=== PATIENT | female | born 1965 | race Caucasian/White ===

== ENCOUNTER → 2017-02-25 | Outpatient (CLI) | payer OTHER | END | disposition home or self-care (01) | LOC: LABWHC1 17:20 | PROVIDERS: ATTEND Psychiatry & Neurology Psychiatry | DX: F31.9 Bipolar disorder, unspecified (principal) | CPT/HCPCS: 36415; 80164; 84450; 84460 ==

== ENCOUNTER → 2017-06-27 | Outpatient (CLI) | payer OTHER ==
--- NOTE | 2017-06-27 13:17 | BD ---
EXAMINATION TYPE: MG DEXA axial skeleton. DATE OF EXAM: 06/27/2017 COMPARISON: NONE CLINICAL HISTORY: : no Height: 65 Weight: 136 FRAX RISK QUESTIONS: Alcohol (3 or more units per day): no Family History (Parent hip fracture): no Glucocorticoids (More than 3mos): no (Ex: prednisone, prednisolone, methylprednisolone, dexamethasone, and hydrocortisone). History of Fracture in Adulthood: no Secondary Osteoporosis: 1. Type 1 Diabetes: no 2. Hyperthyroidism: no 3. Menopause before 45: n/a 4. Malnutrition: no 5. Chronic liver disease: no Rheumatoid Arthritis: no Current Tobacco Use: no RISK FACTORS HISTORY OF: History of Wrist Fracture: as child, both arms Family History of Osteoporosis: unsure Active: yes Diet low in dairy products/other sources of calcium: at least one serving a day Postmenopausal woman: no If Premenopausal, do you have irregular periods: YES Take estrogen and/or progesterone medications: topical for at least 3 years How long: history of hormonal contraceptives about 10 years, none now Lost more than 2 inches in height since high school: no Frequent falls: no Poor Health: no Hyperparathyroidism: no Adrenal Insufficiency: no MEDICATIONS: Prednisone or other steroids: no Thyroid Medications: no Osteoporosis Medications: no Additional Medications: calcium EXAM MEASUREMENTS: Bone mineral densitometry was performed using the [employer] System. Bone mineral density as measured about the Lumbar spine is: ----- L1-L4(G/cm2): 1.173 T Score Values are as follows: ----- L2: -0.3 ----- L3: 0.2 ----- L4: 0.2 ----- L1-L4: -0.1 Bone mineral density has: Increased 1.1% since study of: 09/02/2013 Bone mineral density about the R hip (g/cm2): 0.733 Bone mineral density about the L hip (g/cm2): 0.867 T Score values are as follows: -----R Neck: -2.2 -----L Neck: -1.2 -----R Total: -1.2 -----L Total: -0.7 Bone mineral density has: Increased 0.7% since study of: 09/02/2013 IMPRESSION: Osteopenia (T Score between -2.5 and -1 as noted by T score values There is slightly increased risk of fracture and the patient may be considered for treatment. Re-Screen 2-5 years. NOTE: T-SCORE=SD OF THE YOUNG ADULT MEAN.
--- NOTE | 2017-06-28 11:52 | MM ---
Reason for exam: screening (asymptomatic). Last mammogram was performed 1 year ago. History: Family history of premenopausal breast cancer in aunt at age 45. Took hormonal contraceptives for 10 years. Physical Findings: A clinical breast exam by your physician is recommended on an annual basis and results should be correlated with mammographic findings. MG Screening Mammo w CAD Bilateral CC and MLO view(s) were taken. Prior study comparison: June 13, 2016, bilateral MG screening mammo w CAD. July 23, 2015, mammogram, performed at [facility]. The breast tissue is heterogeneously dense. This may lower the sensitivity of mammography. There are typically benign round calcifications in the right breast. There is no discrete abnormality. ASSESSMENT: Benign, BI-RAD 2 RECOMMENDATION: Routine screening mammogram of both breasts in 1 year.
== END | disposition home or self-care (01) ==
LOC: RADBDWWP 07:11
PROVIDERS: ATTEND Obstetrics & Gynecology
DX: Z12.31 Encounter for screening mammogram for malignant neoplasm of breast (principal); M85.88 Other specified disorders of bone density and structure, other site
CPT/HCPCS: 77080; G0202

== ENCOUNTER → 2017-09-18 | Outpatient (CLI) | payer OTHER ==
[2017-09-18 08:54] LABS: Basophils # (A) 0.1 k/uL (0-0.2); Basophils % (A) 1 %; Eosinophils # (A) 0.2 k/uL (0-0.7); Eosinophils % (A) 3 %; HGB 13.7 gm/dL (11.4-16.0); Lymphocytes # (A) 1.8 k/uL (1.0-4.8); Lymphocytes % (A) 27 %; MCH 30.6 pg (25.0-35.0); MCHC 32.6 g/dL (31.0-37.0); MCV 93.8 fL (80.0-100.0); Mean Platelet Volume 7.6; Monocytes # (A) 0.5 k/uL (0-1.0); Monocytes % (A) 8 %; Neutrophils % (A) 60 %; Platelet Count 278 k/uL (150-450); RBC 4.48 m/uL (3.80-5.40); RDW 12.1 % (11.5-15.5); WBC 6.7 k/uL (3.8-10.6)
[2017-09-18 11:23] LABS: ALT 17 U/L (9-52); AST 18 U/L (14-36); Albumin 4.6 g/dL (3.5-5.0); Alkaline Phosphatase 64 U/L (38-126); Anion Gap 12 mmol/L; Blood Urea Nitrogen 17 mg/dL (7-17); Calcium 9.9 mg/dL (8.4-10.2); Carbon Dioxide 29 mmol/L (22-30); Chloride 101 mmol/L (98-107); Cholesterol 205 mg/dL (<200); Glucose 94 mg/dL (74-99); HDL Cholesterol 78 mg/dL (40-60); LDL Cholesterol,Calculated 105 mg/dL (0-99); Potassium 4.9 mmol/L (3.5-5.1); Sodium 142 mmol/L (137-145); Total Bilirubin 0.3 mg/dL (0.2-1.3); Total Protein 7.7 g/dL (6.3-8.2); Triglycerides 111 mg/dL (<150)
[2017-09-18 11:29] LABS: Valproic Acid (Depakene) 81.7 ug/mL
== END | disposition home or self-care (01) ==
LOC: LABWHC1 08:23
PROVIDERS: ATTEND Psychiatry & Neurology Psychiatry
DX: Z00.00 Encounter for general adult medical examination without abnormal findings (principal); F31.9 Bipolar disorder, unspecified; E55.9 Vitamin D deficiency, unspecified
CPT/HCPCS: 36415; 80053; 80061; 80164; 82306; 85025

== ENCOUNTER → 2018-06-19 | Outpatient (CLI) | payer OTHER ==
--- NOTE | 2018-06-19 08:50 | CT ---
EXAMINATION TYPE: CT sinus wo con DATE OF EXAM: 06/19/2018 COMPARISON: CT facial bones August 06, 2012 HISTORY: atypical facial pain per order, headache with pressure into forehead and abnormal drainage f or [address] DLP: 673.7 mGycm. Automated Exposure Control for Dose Reduction was Utilized. TECHNIQUE: CT scan of the sinuses is performed without contrast, axial images are obtained, coronal r eformatted images are also reviewed. FINDINGS: The paranasal sinuses including the frontal, ethmoid, sphenoid, and maxillary sinuses bila terally are well-aerated without abnormal opacification. Some linear bony protrusion or trabeculatio n anteriorly in both maxillary sinuses remains present. The ostiomeatal complex is patent bilaterally on the coronal images. Nasal septum remains deviated to left of midline. Visualized portion of mastoid air cells show no abnormal opacification. The globes are intact bilate rally. Visualized portion of brain parenchyma shows no significant abnormality. IMPRESSION: The sinuses remain clear and the ostiomeatal complex remains patent bilaterally.
== END | disposition home or self-care (01) ==
LOC: RADCTMAIN 07:36
PROVIDERS: ATTEND Otolaryngology Sleep Medicine
DX: G50.1 Atypical facial pain (principal)
CPT/HCPCS: 70486

== ENCOUNTER → 2018-11-05 | Outpatient (CLI) | payer SELFPAY ==
--- NOTE | 2018-11-05 11:33 | US ---
EXAMINATION TYPE: US pelvis complete transvag DATE OF EXAM: 11/05/2018 COMPARISON: NONE CLINICAL HISTORY: 53-year-old female Z51.81 Encounter for therapeutic drug level. Hx of prior ablatio n. Patient states was on HRT x 8-10 months TECHNIQUE: Transabdominal sonographic images of the pelvis were acquired. Transvaginal sonographic images were medically necessary to better assess the following anatomy: Endometrium Date of LMP: unknown, FINDINGS: EXAM MEASUREMENTS: Uterus: 8.8 x 5.0 x 4.5 cm Right Ovary: 2.9 x 1.5 x 0.8 cm Left Ovary: 2.2 x 1.3 x 0.9 cm 1. Uterus: Anteverted. Heterogeneous, no dominant masses or lesions visualized 2. Endometrium: limited visualization due to hx of ablation 3. Right Ovary: cystic appearing lesion = 1.5 x 1.4 cm 4. Left Ovary: appears small in size 5. Bilateral Adnexa: wnl 6. Posterior cul-de-sac: no free fluid Cervix- nabothian cysts. Echogenic area seen = 0.7 x 0.7 x 0.5 cm IMPRESSION: 1. Endometrial stripe difficult to delineate secondary to prior ablation. 2. Heterogeneous myometrium could represent diffuse small fibroid change or adenomyosis. 3. A 1.5 cm cyst, possible dominant follicle in the right ovary. Follow-up in 6-8 weeks to reassess. 4. Cervical nabothian cysts along with a 7 mm echogenic lesion in the cervix. This could represent a nabothian cyst with accumulated hemorrhage/debris or a nonspecific focus of calcification related to prior infection or instrumentation.
== END | disposition home or self-care (01) ==
LOC: RADUSWWP 09:36
PROVIDERS: ATTEND Obstetrics & Gynecology
DX: N83.201 Unspecified ovarian cyst, right side (principal); N88.8 Other specified noninflammatory disorders of cervix uteri; Z98.890 Other specified postprocedural states
CPT/HCPCS: 76830; 76856

== ENCOUNTER → 2018-12-01 | Outpatient (CLI) | payer OTHER ==
--- NOTE | 2018-12-02 13:44 | MM ---
Reason for exam: screening (asymptomatic). Last mammogram was performed 1 year and 5 months ago. History: Family history of premenopausal breast cancer in aunt at age 45. Took hormonal contraceptives for 10 years. Took estrogen for 1 year. Took progesterone for 3 months. Physical Findings: A clinical breast exam by your physician is recommended on an annual basis and results should be correlated with mammographic findings. MG Screening Mammo w CAD Bilateral CC and MLO view(s) were taken. Prior study comparison: June 27, 2017, bilateral MG screening mammo w CAD. June 13, 2016, bilateral MG screening mammo w CAD. The breast tissue is heterogeneously dense. This may lower the sensitivity of mammography. No suspicious abnormality on the right. Left central distortion 2-3cm from nipple. ASSESSMENT: Incomplete: need additional imaging evaluation, BI-RAD 0 RECOMMENDATION: Special view mammogram of the left breast. If lesion persists on supplemental views, image directed ultrasound is recommended. [facility] will attempt to contact patient to return for supplemental views and ultrasound if indicated.
== END | disposition home or self-care (01) ==
LOC: RADMAMWWP 07:37
PROVIDERS: ATTEND Obstetrics & Gynecology
DX: Z12.31 Encounter for screening mammogram for malignant neoplasm of breast (principal); Z80.3 Family history of malignant neoplasm of breast
CPT/HCPCS: 77067

== ENCOUNTER → 2018-12-10 | Outpatient (CLI) | payer OTHER ==
--- NOTE | 2018-12-10 11:43 | MM ---
Reason for exam: additional evaluation requested from abnormal screening. Last mammogram was performed less than 1 month ago. History: Family history of premenopausal breast cancer in aunt at age 45 and breast cancer in cousin. Took hormonal contraceptives for 10 years. Taking estrogen for 1 year. Taking progesterone for 3 months. Physical Findings: Nurse did not find any significant physical abnormalities on exam. MG Work Up Mamm w CAD LT Spot compression CC, spot compression MLO, and LM view(s) were taken of the left breast. Prior study comparison: December 01, 2018, bilateral MG screening mammo w CAD. June 27, 2017, bilateral MG screening mammo w CAD. The breast tissue is heterogeneously dense. This may lower the sensitivity of mammography. The previously seen abnormality resolves on additional views and appears as fibroglandular tissue compatible with summation. These results were verbally communicated with the patient and result sheet given to the patient on 12/10/18. ASSESSMENT: Negative, BI-RAD 1 RECOMMENDATION: Return to routine screening mammogram schedule for both breasts.
== END ==
LOC: RADMAMWWP 10:16
PROVIDERS: ATTEND Obstetrics & Gynecology
DX: R92.8 Other abnormal and inconclusive findings on diagnostic imaging of breast (principal)
CPT/HCPCS: 77065

== ENCOUNTER → 2020-01-15 | Outpatient (CLI) | payer OTHER ==
[2020-01-15 21:43] LABS: Valproic Acid (Depakene) 57.7 ug/mL (50.0-100.0)
== END | disposition home or self-care (01) ==
LOC: LABWHC1 10:43
PROVIDERS: ATTEND Psychiatry & Neurology Psychiatry
DX: F31.9 Bipolar disorder, unspecified (principal)
CPT/HCPCS: 36415; 80164; 84450; 84460

== ENCOUNTER → 2020-02-15 | Outpatient (CLI) | payer OTHER ==
--- NOTE | 2020-02-16 09:55 | MM ---
Reason for exam: screening (asymptomatic). Last mammogram was performed 1 year and 2 months ago. History: Family history of premenopausal breast cancer in aunt at age 45 and breast cancer in cousin. Took hormonal contraceptives for 10 years. Taking estrogen for 1 year. Taking progesterone for 3 months. Physical Findings: A clinical breast exam by your physician is recommended on an annual basis and results should be correlated with mammographic findings. MG 3D Screening Mammo W/Cad Bilateral CC and MLO view(s) were taken. Prior study comparison: December 10, 2018, left breast MG work up mamm w CAD LT. December 01, 2018, bilateral MG screening mammo w CAD. The breast tissue is heterogeneously dense. This may lower the sensitivity of mammography. Finding: There are typically benign round calcifications in the right breast. There is no discrete abnormality. ASSESSMENT: Benign, BI-RAD 2 RECOMMENDATION: Routine screening mammogram of both breasts in 1 year.
== END | disposition home or self-care (01) ==
LOC: RADMAMWWP 07:11
PROVIDERS: ATTEND Obstetrics & Gynecology
DX: Z12.31 Encounter for screening mammogram for malignant neoplasm of breast (principal)
CPT/HCPCS: 77063; 77067

== ENCOUNTER → 2020-02-19 | Outpatient (CLI) | payer OTHER ==
--- NOTE | 2020-02-19 09:21 | BD ---
EXAMINATION TYPE: Axial Bone Density DATE OF EXAM: 02/19/2020 COMPARISON: NONE CLINICAL HISTORY: Osteopenia Height: 65 Weight: 146.9 FRAX RISK QUESTIONS: Alcohol (3 or more units per day): no Family History (Parent hip fracture): no Glucocorticoids (More than 3mos): no (Ex: prednisone, prednisolone, methylprednisolone, dexamethasone, and hydrocortisone). History of Fracture in Adulthood: no Secondary Osteoporosis: 1. Type 1 Diabetes: no 2. Hyperthyroidism: no 3. Menopause before 45: no 4. Malnutrition: no 5. Chronic liver disease: no Rheumatoid Arthritis: no Current Tobacco Use: no RISK FACTORS HISTORY OF: History of Wrist Fracture: bilateral wrist When: age 8 and age 9 Family History of Osteoporosis: no Active: yes Diet low in dairy products/other sources of calcium: no Postmenopausal woman: no If Premenopausal, do you have irregular periods: yes Take estrogen and/or progesterone medications: yes How lon years Lost more than 2 inches in height since high school: no MEDICATIONS: bi-polar meds, muscle relaxer, nasal spray x2, progesterone, estradiol, , estrogen cream Additional History: EXAM MEASUREMENTS: Bone mineral densitometry was performed using the [employer] System. Bone mineral density as measured about the Lumbar spine is: ----- L1-L4(G/cm2): 1.157 T Score Values are as follows: ----- L2: -0.6 ----- L3: 0.0 ----- L4: 0.3 ----- L1-L4: -0.2 Bone mineral density has: decreased -1.3 % since study of: 06.27.2017 Bone mineral density about the R hip (g/cm2): 0.775 Bone mineral density about the L hip (g/cm2): 0.922 T Score values are as follows: -----R Neck: -1.9 -----L Neck: -0.8 -----R Total: -1.0 -----L Total: -0.3 Bone mineral density has: increased 4.4 % since study of: 06.27.2017 IMPRESSION: Osteopenia (T Score between -2.5 and -1). There is slightly increased risk of fracture and the patient may be considered for treatment. Re-Screen 2-5 years. NOTE: T-SCORE=SD OF THE YOUNG ADULT MEAN.
== END | disposition home or self-care (01) ==
LOC: RADBDWWP 07:23
PROVIDERS: ATTEND Obstetrics & Gynecology
DX: M85.80 Other specified disorders of bone density and structure, unspecified site (principal)
CPT/HCPCS: 77080

== ENCOUNTER → 2021-08-17 | Outpatient (CLI) | payer OTHER ==
--- NOTE | 2021-08-18 11:43 | MM ---
Reason for exam: screening (asymptomatic). Last mammogram was performed 1 year and 6 months ago. History: Patient is postmenopausal. Family history of premenopausal breast cancer in aunt at age 45 and breast cancer in cousin. Took hormonal contraceptives for 10 years. Taking estrogen for 2 years. Took progesterone for 2 years 3 months. Physical Findings: A clinical breast exam by your physician is recommended on an annual basis and results should be correlated with mammographic findings. MG 3D Screening Mammo W/Cad Bilateral CC and MLO view(s) were taken. Prior study comparison: February 15, 2020, bilateral MG 3d screening mammo w/cad. December 10, 2018, left breast MG work up mamm w CAD LT. The breast tissue is heterogeneously dense. This may lower the sensitivity of mammography. No significant changes when compared with prior studies. ASSESSMENT: Negative, BI-RAD 1 RECOMMENDATION: Routine screening mammogram of both breasts in 1 year.
== END | disposition home or self-care (01) ==
LOC: RADMAMWWP 07:05
PROVIDERS: ATTEND Obstetrics & Gynecology
DX: Z12.31 Encounter for screening mammogram for malignant neoplasm of breast (principal); Z78.0 Asymptomatic menopausal state; Z80.3 Family history of malignant neoplasm of breast
CPT/HCPCS: 77063; 77067

== ENCOUNTER 2022-05-17 17:22 | Emergency (ER) | payer OTHER ==
[2022-05-17 17:59] VITALS: TEMP 98
[2022-05-17] MEDS ORDERED: SODIUM CHLORIDE 0.9% 1,000 ML IV STA (18:37)
--- NOTE | 2022-05-17 18:50 | ED ---
Chest Pain HPI - General Chief Complaint: Chest Pain Stated Complaint: Chest Pain, Sent by PCP Time Seen by Provider: 05/17/22 18:27 Source: patient Mode of arrival: ambulatory - History of Present Illness Initial Comments: Patient is a female presenting with chief complaint of chest pain. Patient states the pain is been ongoing for the last 2 weeks, she states that last week she had 3 episodes of waking up with some centralized chest discomfort. She states that this week she started noticing this discomfort during the daytime. There are no aggravating or alleviating factors. She also admits to some nausea and indigestion. Her maternal grandfather had heart attack in his 50s, no other family history. No shortness of breath, palpitations, weakness, fever, chills, cough, abdominal pain, diarrhea, hemoptysis, hematochezia, melena. - Related Data Allergies Allergy/AdvReac Type Severity Reaction Status Date / Time No Known Allergies Allergy Verified 05/17/22 18:00 Review of Systems ROS Statement: Those systems with pertinent positive or pertinent negative responses have been documented in the HPI. ROS Other: All systems not noted in ROS Statement are negative. Past Medical History Past Medical History: No Reported History History of Any Multi-Drug Resistant Organisms: None Reported Past Surgical History: Section Past Psychological History: No Psychological Hx Reported, Bipolar Smoking Status: Never smoker Past Alcohol Use History: None Reported Past Drug Use History: None Reported General Exam Limitations: no limitations General appearance: alert, in no apparent distress Head exam: Present: atraumatic, normocephalic, normal inspection Eye exam: Present: normal appearance Neck exam: Present: normal inspection Respiratory exam: Present: normal lung sounds bilaterally. Absent: respiratory distress, wheezes, rales, rhonchi, stridor Cardiovascular Exam: Present: regular rate, normal rhythm, normal heart sounds. Absent: systolic murmur, diastolic murmur, rubs, gallop, clicks Neurological exam: Present: alert, oriented X3, CN II-XII intact Psychiatric exam: Present: normal affect, normal mood Skin exam: Present: warm, dry, intact, normal color. Absent: rash Course Vital Signs 05/17/22 05/17/22 17:56 20:22 Temperature 98 F Pulse Rate 71 81 Respiratory 18 15 Rate Blood Pressure 158/105 144/68 O2 Sat by Pulse 98 100 Oximetry Chest Pain [facility] Patient is a 56-year-old female presenting with chief complaint of chest pain for the last 2 weeks. On physical examination heart and lungs are clear to auscultation. Vital signs are stable. CBC and coags are unremarkable. CMP shows calcium 10.3, remainder findings are negative. Troponin is less than 0.012. Urine shows no sign of infectious process or bleeding. EKG showed no ischemic changes. Chest x-ray showed no acute process. Patient has atypical chest pain with heart score of 1. She appears stable for discharge with outpatient follow-up at this time. Follow-up with PCP. Report back to ER with any new or worsening symptoms. Discussed return parameters and answered all questions. Patient conveyed verbal understanding and agreed to the plan. I discussed this case in detail with my attending Dr. Ricks Disposition Clinical Impression: Atypical chest pain Disposition: HOME SELF-CARE Condition: Good Instructions (If sedation given, give patient instructions): Chest Pain (ED) Additional Instructions: Follow-up with PCP. Report back to ER with any new or worsening symptoms. Is patient prescribed a controlled substance at d/c from ED?: No Referrals: Oz Bush MD [Primary Care Provider] - 1-2 days Time of Disposition: 20:16
[2022-05-17 18:54] LABS: Basophils # (A) 0.1 k/uL (0-0.2); Basophils % (A) 1 %; Eosinophils # (A) 0.1 k/uL (0-0.7); Eosinophils % (A) 2 %; HCT 40.7 % (34.0-46.0); HGB 14.1 gm/dL (11.4-16.0); Lymphocytes % (A) 35 %; MCHC 34.5 g/dL (31.0-37.0); MCV 92.6 fL (80.0-100.0); Mean Platelet Volume 8.1; Monocytes # (A) 0.4 k/uL (0-1.0); Monocytes % (A) 6 %; Neutrophils # (A) 3.1 k/uL (1.3-7.7); Neutrophils % (A) 54 %; Platelet Count 284 k/uL (150-450); RBC 4.39 m/uL (3.80-5.40); RDW 11.5 % (11.5-15.5); WBC 5.7 k/uL (3.8-10.6)
[2022-05-17 19:01] LABS: Creatine Kinase 49 U/L (30-135)
[2022-05-17 19:03] LABS: ALT 17 U/L (4-34); AST 22 U/L (14-36); African American GFR (CKD) >90 (>60 ml/min/1.73 sqM); Alkaline Phosphatase 66 U/L (38-126); Anion Gap 9 mmol/L; Blood Urea Nitrogen 12 mg/dL (7-17); Calcium 10.3 mg/dL (8.4-10.2); Carbon Dioxide 30 mmol/L (22-30); Chloride 98 mmol/L (98-107); Glucose 90 mg/dL (74-99); Magnesium 1.7 mg/dL (1.6-2.3); Non-African American GFR(CKD) >90 (>60 ml/min/1.73 sqM); Potassium 4.3 mmol/L (3.5-5.1); Sodium 137 mmol/L (137-145); Total Bilirubin 0.5 mg/dL (0.2-1.3); Total Protein 7.8 g/dL (6.3-8.2)
[2022-05-17 19:05] LABS: INR 0.9 (<1.2); Partial Thromboplastin Time 28.7 sec (22.0-30.0); Prothrombin Time 10.2 sec (9.0-12.0)
[2022-05-17 19:14] LABS: Creatine Kinase MB 0.5 ng/mL (0.0-2.4); Troponin I <0.012 ng/mL (0.000-0.034)
--- NOTE | 2022-05-17 19:23 | XR ---
EXAMINATION TYPE: XR chest 2V DATE OF EXAM: 05/17/2022 COMPARISON: NONE HISTORY: Chest pain. TECHNIQUE: Frontal and lateral views of the chest are obtained. FINDINGS: Overlying EKG leads. There is no focal air space opacity, pleural effusion, or pneumothorax seen. The cardiac silhouette size is within normal limits. The osseous structures are intact. IMPRESSION: No acute process.
[2022-05-17 19:36] LABS: Appearance,Urine Clear (Clear); Bilirubin,Urine Negative (Negative); Blood,Urine Negative (Negative); Color,Urine Colorless; Glucose,Urine (UA) Negative (Negative); Ketones,Urine Negative (Negative); Leukocyte Esterase,Urine Negative (Negative); Nitrite,Urine Negative (Negative); Protein,Urine Negative (Negative); Specific Gravity,Urine 1.004 (1.001-1.035); Urobilinogen,Urine <2.0 mg/dL (<2.0)
[2022-05-17 20:22] VITALS: BP 144/68; PULSE 81; RESP 15
== END 2022-05-17 20:23 | disposition home or self-care (01) ==
LOC: EC 17:22
DX: R07.89 Other chest pain (principal)
CPT/HCPCS: 36415; 71046; 80053; 81003; 82150; 82550; 82553; 83690; 83735; 84484; 85025; 85610; 85730; 93005; 99285

== ENCOUNTER → 2022-07-27 | Outpatient (CLI) | payer OTHER ==
--- NOTE | 2022-07-27 10:26 | CA ---
Stress Echo Report Jacklyn Villagomez Age: 56 Gender: F : 1965 Exam Date: 07/27/2022 09:12 Exam Location: [place] [facility] Ht (in): 65 Wt (lb): 152 Ordering Physician: Oz Bush MD Referring Physician: RONIT, Molder Wax Ball: SHELLY Technologist Procedure CPT: Indication: R07.89 chest pain ICD-9 Codes: Rhythm: Patient History: Cardiac Medications: Medications in past 24 hours: Contrast: Stress Results Protocol: Bebo Total dose(mL): Exercise Duration (min:sec): [address] Depression (mm): Angina Score: Judd Score: METS: 7.1 Resting HR: 92 Resting BP: 131 / 76 Peak HR: 168 Peak BP: 210 / 122 Max Predicted HR: 162 104 % Max Predicted HR Target HR: 138 Double Product: 26286 Stress Summary: BP Response: Reason for Termination: MAX EXERTION/TARGET HR Cardiac Symptoms: NO SYMPTOMS ECG Analysis Resting ECG: Normal sinus rhythm with occasional PVCs Stress ECG: Patient exercised on Bebo protocol for 6 minutes achieving 7 mets 85% of predicted maximal heart rate without chest pain at peak exercise there was [address] segment depression noted in inferolateral leads Arrhythmia: Echo Analysis Resting Echo: Normal left ventricular size wall motion systolic function Peak Echo Analysis: Technically suboptimal study no proper atypical 2 chamber views With that limitation I did not see any exercise induced wall motion abnormalities MEASUREMENTS (Male/Female) Normal Values CONCLUSIONS Average exercise tolerance Abnormal stress test by EKG criteria No evidence of exercise induced wall motion abnormalities with suboptimal echo views Consider further evaluation if clinically indicated Dr. Sal Umanzor MD (Electronically Signed) Final Date: 27 July 2022 10:25
== END | disposition home or self-care (01) ==
LOC: RADNMMAIN 08:57
PROVIDERS: ATTEND Internal Medicine
DX: R94.31 Abnormal electrocardiogram [ECG] [EKG] (principal); R07.89 Other chest pain
CPT/HCPCS: 93351

== ENCOUNTER → 2022-10-04 | Outpatient (CLI) | payer OTHER ==
[2022-10-05 03:45] LABS: Valproic Acid (Depakene) 37.8 ug/mL (50.0-100.0)
[2022-10-05 03:50] LABS: % Iron Saturation 25.81 (12.00-45.00); ALT 16 U/L (8-44); AST 19 U/L (13-35); African American GFR (CKD) 83.2 (60.0-200.0); Albumin 4.6 g/dL (3.8-4.9); Albumin/Globulin Ratio 1.69 (1.60-3.17); Alkaline Phosphatase 64 U/L (41-126); BUN/Creat Ratio 18.05 Ratio (12.00-20.00); Blood Urea Nitrogen 15.9 mg/dL (9.0-27.0); Calcium 9.7 mg/dL (8.7-10.3); Carbon Dioxide 28.3 mmol/L (20.0-27.5); Chloride 99 mmol/L (96-109); Globulin 2.7 g/dL (1.6-3.3); Glucose 71 mg/dL (70-110); Iron 103 ug/dL (50-170); Magnesium 2.1 mg/dL (1.5-2.4); Non-African American GFR(CKD) 71.8 (60.0-200.0); Potassium 4.2 mmol/L (3.5-5.5); Sodium 141 mmol/L (135-145); Total Bilirubin <0.15 mg/dL (0.30-1.20); Total Iron Binding Capacity 399 ug/dL (228-460); Total Protein 7.2 g/dL (6.2-8.2)
[2022-10-05 03:51] LABS: HCT 42.4 % (37.2-46.3); HGB 13.7 g/dL (12.0-15.0); MCH 30.9 pg (27.0-32.0); MCHC 32.3 g/dL (32.0-37.0); MCV 95.5 fL (80.0-97.0); Mean Platelet Volume 9.9 fL (9.5-12.2); NRBC Per 100 WBC 0 /100 WBCS (0.0-0.0); Platelet Count 277 X 10*3/uL (140-440); RBC 4.44 X 10*6/uL (4.10-5.20); RDW 12.2 % (11.5-14.5); WBC 5.04 X 10*3/uL (4.50-10.00)
[2022-10-05 05:17] LABS: Basophils # (A) 0.05 X 10*3/uL (0.00-0.10); Eosinophils # (A) 0.09 X 10*3/uL (0.04-0.35); Eosinophils % (A) 1.8 %; Immature Grans, Automated 0.2 %; Lymphocytes # (A) 2.11 X 10*3/uL (0.90-5.00); Lymphocytes % (A) 41.9 %; Monocytes # (A) 0.45 X 10*3/uL (0.20-1.00); Monocytes % (A) 8.9 %; Neutrophils # (A) 2.33 X 10*3/uL (1.80-7.70); Neutrophils % (A) 46.2 %; RBC Morphology NORMAL
== END | disposition home or self-care (01) ==
LOC: LABWHC1 15:01
PROVIDERS: ATTEND Internal Medicine
DX: Z20.822 Contact with and (suspected) exposure to COVID-19 (principal); M85.80 Other specified disorders of bone density and structure, unspecified site; G43.909 Migraine, unspecified, not intractable, without status migrainosus; F31.78 Bipolar disorder, in full remission, most recent episode mixed; R40.0 Somnolence
CPT/HCPCS: 80164; 86665; 80053; 84443; 82533; 82607; 82728; 82746; 83540; 83550; 83735; 85025; 82306; 86645; 86038; 36415; U0003; 86039

== ENCOUNTER → 2022-11-13 | Outpatient (CLI) | payer OTHER ==
--- NOTE | 2022-11-13 14:56 | P.SLEEP ---
History of Present Illness H&P Date: 11/13/22 This is a 57-year-old female patient, referred to me for sleep apnea evaluation. The patient is a long sleeper. She spends many hours in bed and she sleeps more than 8 hours of sleep and despite that she feels non-refreshed. Typically she goes to bed at around 11 PM and she wakes up 7 AM in the morning. On weekends she stays between 11 PM and no dynamic state. Her noticed excessive snoring and the patient wakes up groggy and not refreshed. She is known to have bipolar disorder and she was originally diagnosed and hospitalized back in 2003 and currently she is on mood stabilizer and her condition is well controlled. No depression. No significant anxiety. She has history of mi graines. She denies waking up choking or gasping for air. She has occasional to grinding of the teeth. No sleepwalking. No sleep talking. No nocturnal heartburn or chest pain. [place] any naps during the day. No sleep paralysis. No hallucinations. No cataplexy. She has gained around 10 pounds in body weight over the past one year. Nevertheless, overall, she is not obese. She tries not to nap and she may take a nap sometimes between 3 and 5 PM. Review of Systems Constitutional: Reports daytime sleepiness, Reports fatigue Eyes: denies as per HPI, denies blurred vision, denies bulging eye, denies decreased vision, denies diplopia, denies discharge, denies dry eye, denies irritation, denies itching, denies pain, denies photophobia, denies loss of peripheral vision, denies loss of vision, denies tunnel vision/blind spots Ears: deny: decreased hearing, ear discharge, earache, tinnitus Ears, nose, mouth and throat: Reports as per HPI Breasts: absent: as per HPI, change in shape, gynecomastia, masses, nipple discharge, pain, skin changes, swelling Cardiovascular: Reports as per HPI Respiratory: Reports snoring Gastrointestinal: Reports as per HPI Genitourinary: Reports as per HPI Menstruation: Reports as per HPI Musculoskeletal: Reports as per HPI Integumentary: Reports as per HPI Neurological: Reports as per HPI Psychiatric: Reports as per HPI Endocrine: Reports as per HPI Past Medical History Past Medical History: GERD/Reflux, Hyperlipidemia, Hypertension, Osteoarthritis (OA) Additional Past Medical History / Comment(s): headaches/migraines, bipolar disorder, ALLERGIC rhinitis, osteopenia, hot flashes, carpal tunnel disease History of Any Multi-Drug Resistant Organisms: None Reported Past Surgical History: Section, Heart Catheterization, Uterine Ablation Additional Past Surgical History / Comment(s): C/S x2 Past Anesthesia/Blood Transfusion Reactions: No Reported Reaction Smoking Status: Former smoker Medications and Allergies Home Medications Medication Instructions Recorded Confirmed Type Amitriptyline HCl [Elavil] 10 mg PO HS 08/07/22 08/09/22 History Aspirin 81 mg PO DAILY 08/07/22 08/09/22 History Atorvastatin [Lipitor] 20 mg PO HS 08/07/22 08/09/22 History Divalproex [Depakote] 500 mg PO HS 08/07/22 08/09/22 History Fluticasone Nasal [place] [Flonase 2 spray EA NOSTRIL DAILY 08/07/22 08/09/22 History Nasal [place]] Levocetirizine Dihydrochloride 5 mg PO DAILY 08/07/22 08/09/22 History [Xyzal] Metoprolol Tartrate [Lopressor] 25 mg PO BID 08/07/22 08/09/22 History Spironolactone [Aldactone] 12.5 mg PO DAILY #90 tablet 08/09/22 Rx Allergies Allergy/AdvReac Type Severity Reaction Status Date / Time adhesive tape AdvReac skin Verified 08/09/22 09:01 redness Physical Exam BP is 115/79, pulse is 70, respirations 12, temperature is 97.3 and weight is 161 pounds [place] score is at 3 the side of the neck is 15 inches in a body mass index is 26.1 and oxygen saturation 95% on room air oxygen. The patient appeared well nourished and normally developed. Vital signs as documented. Head exam is unremarkable. No scleral icterus or corneal arcus noted. Neck is without jugular venous distension, thyromegaly, or carotid bruits. Carotid upstrokes are brisk bilaterally. Lungs are clear to auscultation and percussion. Cardiac exam reveals the PMI to be normally sized and situated. Rhythm is regular. First and second heart sounds normal. No murmurs, rubs or gallops. Abdominal exam reveals normal bowel sounds, no masses, no organomegaly and no aortic enlargement. Extremities are nonedematous and both femoral and pedal pulses are normal. Examination of the skin revealed no evidence of signifi cant rashes, suspicious appearing nevi or other concerning lesions.Neurologically, the patient is awake and alert and the patient does not have any focal neurological deficit. Cranial nerves are essentially intact. Assessment and Plan Plan: Chronic fatigue and limited hypersomnia with an [place] score of 3. The patient remains groggy and sleepy and fatigued despite sleeping in excess of 8 hours. She has some limited snoring. There is no classical manifestations of obstructive sleep apnea based on her reported history. Migraine disorder. Bipolar disorder Osteopenia ALLERGIC rhinitis Carpal tunnel disease Postmenopausal symptoms and the patient has had flashes maintained on amitriptyline Plan Proceed with screening polysomnogram. If the polysomnography is negative or does not explain her chronic daytime sleepiness and fatigue, we'll proceed with a second MSLT. Maintain regular sleep schedule Maintain good sleep hygiene measures Treat comorbidities We'll continue to follow make further recommendations based on the results of the sleep study. Sleep Note - Sleep Note Sleep Note: Temperature: Pulse Rate: Respiratory Rate: Blood Pressure: SpO2: Height: Weight: BMI: Neck Circumference:
== END ==
LOC: SLEEP 13:52
PROVIDERS: ATTEND Internal Medicine Critical Care Medicine
DX: G47.33 Obstructive sleep apnea (adult) (pediatric) (principal); G43.909 Migraine, unspecified, not intractable, without status migrainosus; F31.9 Bipolar disorder, unspecified; M85.80 Other specified disorders of bone density and structure, unspecified site; J30.9 Allergic rhinitis, unspecified; G90.50 Complex regional pain syndrome I, unspecified; Z98.890 Other specified postprocedural states; Z99.89 Dependence on other enabling machines and devices; Z91.048 Other nonmedicinal substance allergy status; Z79.82 Long term (current) use of aspirin; K21.9 Gastro-esophageal reflux disease without esophagitis; E78.5 Hyperlipidemia, unspecified; M19.90 Unspecified osteoarthritis, unspecified site; Z87.891 Personal history of nicotine dependence
CPT/HCPCS: 99211

== ENCOUNTER → 2023-02-12 | Outpatient (CLI) | payer OTHER ==
--- NOTE | 2023-02-12 16:08 | P.PN ---
Progress Note - Text Progress Note Date: 02/12/23 On 02/12/2023, I'm seeing this patient in follow-up in the office to discuss the results of the sleep study. Noted the patient presented to me with symptoms of chronic sleepiness. The patient reported long number of hours of sleep to get herself refreshed. She is 57 years old. She spends many hours in bed and typically she sleeps more than 10 hours. Based on that, further investigation was done. The patient underwent a screening polysomnography and the sleep study showed no evidence of any sleep breathing disorder and the patient had an AHI of 2.0. No abnormalities in terms of sleep apnea. The patient had no significant apneas or hypopneas. The patient diminished delta wave and REM an overexpression of the stage II sleep. The patient underwent the secondary MSLT and she was given a total of 5 naps. The patient did not fall asleep during nap #3 and not #5. The patient fell asleep and nap #1 and 2 and 4 and the sleep latency for those were 19.5 minutes, 18 minutes, and 10 minutes. The mean sleep latency 45 naps was 17.5 minutes and the patient had only one REM onset sleep. As mentioned earlier, the patient has history of manic bipolar disorder and the patient has been maintained on amitriptyline, valproic acid, and her psychiatric health is adequately maintained for now. She is also taking beta blockers which could be contributing to her chronic sleep requirement. Nevertheless, her symptoms date back to more than 20 or 30 years ago. No substance abuse. No head trauma. No active psychiatric issues at this point in time. BP is 118/79, pulse is 90, respirations 16, temperature is 98.3, actual weight is 161 pounds, pulse ox is 95% on room air oxygen. The patient appeared well nourished and normally developed. Vital signs as documented. Head exam is unremarkable. No scleral icterus or corneal arcus noted. Neck is without jugular venous distension, thyromegaly, or carotid bruits. Carotid upstrokes are brisk bilaterally. Lungs are clear to auscultation and percussion. Cardiac exam reveals the PMI to be normally sized and situated. Rhythm is regular. First and second heart sounds normal. No murmurs, rubs or gallops. Abdominal exam reveals normal bowel sounds, no masses, no organomegaly and no aortic enlargement. Extremities are nonedematous and both femoral and pedal pulses are normal.Examination of the skin revealed no evidence of significant rashes, suspicious appearing nevi or other concerning lesions.Neurologically, the patient is awake and alert and the patient does not have any focal neurological deficit. Cranial nerves are essentially intact. Assessment Long sleeper. The patient has clinical manifestations of along sleeping individual. This is not pathologic. The patient requires more than 10 hours of sleep to get herself refreshed and she does not have any underlying sleep breathing disorder or any other abnormalities to contact reviewed to her longer sleep requirement. No evidence of narcolepsy. Does not fit the criteria for primary idiopathic hypersomnia. Manic/bipolar disorder Migraines Carpal tunnel disease Plan Encourage the patient to sleep more than 10 hours. Her condition is nonpathologic. Consider taking this patient off the beta blockers Continue taking this patient off amitriptyline Increase daytime stimulation by coffee and other caffeinated beverages See him back in a year's time in follow-up. Appropriate recommendations and tips were given regarding her condition. She was also directed to the appropriate websites.
== END ==
LOC: 3 N SLEEP 15:28
PROVIDERS: ATTEND Internal Medicine Critical Care Medicine
DX: G47.10 Hypersomnia, unspecified (principal); F31.9 Bipolar disorder, unspecified; G43.909 Migraine, unspecified, not intractable, without status migrainosus; M85.80 Other specified disorders of bone density and structure, unspecified site; G56.00 Carpal tunnel syndrome, unspecified upper limb; Z78.0 Asymptomatic menopausal state; J30.9 Allergic rhinitis, unspecified; K21.9 Gastro-esophageal reflux disease without esophagitis; E78.5 Hyperlipidemia, unspecified; I10 Essential (primary) hypertension; M19.90 Unspecified osteoarthritis, unspecified site; Z87.891 Personal history of nicotine dependence; Z79.82 Long term (current) use of aspirin; Z79.899 Other long term (current) drug therapy; Z91.048 Other nonmedicinal substance allergy status

== ENCOUNTER → 2024-03-04 | Outpatient (CLI) | payer OTHER ==
--- NOTE | 2024-03-05 09:23 | MM ---
Reason for Exam: Screening (asymptomatic). Last mammogram was performed 2 year(s) and 7 month(s) ago. Patient History: Menarche at age 10. First Full-Term at age 26. Postmenopausal. Patient has history of breast feeding. Currently using Estrogen, for 2 years. Progesterone for 2 years, 3 months. Patient used Hormonal Contraceptives for 10 years. Maternal cousin had breast cancer. Maternal aunt had breast cancer, age 45. Risk Values: Yamila 5 year model risk: 1.6%. NCI Lifetime model risk: 8.1%. Prior Study Comparison: 12/10/2018 Left Diagnostic Mammogram, [facility]. 02/15/2020 Bilateral Screening Mammogram, [facility]. 08/17/2021 Bilateral Screening Mammogram, [facility]. Tissue Density: The breasts are heterogeneously dense, which may obscure small masses. Findings: Analyzed By CAD. There is no suspicious group of microcalcifications or new suspicious mass in either breast. Benign appearing calcifications. Overall Assessment: Benign, BI-RAD 2 Management: Screening Mammogram of both breasts in 1 year. . Patient should continue monthly self-breast exams. A clinical breast exam by your physician is recommended on an annual basis. This exam should not preclude additional follow-up of suspicious palpable abnormalities. Note on Yamila scores and lifetime risk: 1. A Yamila score greater than 3% is considered moderate risk. If this is the case, consider specialist referral to assess eligibility for a risk reducing agent. 2. If overall lifetime risk for the development of breast cancer is 20% or higher, the patient may qualify for future screening with alternating mammogram and breast MRI. Electronically signed and approved by: Peter Smith M.D. Radiologis
--- NOTE | 2024-03-06 16:39 | BD ---
EXAMINATION TYPE: Axial Bone Density DATE OF EXAM: 03/04/2024 CLINICAL HISTORY: 58 years old Female. ICD-10 CODE: M85.50 osteopenia Height: 5 ft 6 in Weight: 151 FRAX RISK QUESTIONS: Alcohol (3 or more units per day): no Family History (Parent hip fracture): no Glucocorticoids (More than 3mos): no (Ex: prednisone, prednisolone, methylprednisolone, dexamethasone, and hydrocortisone). History of Fracture in Adulthood: yes Secondary Osteoporosis: 1. Type 1 Diabetes: no 2. Hyperthyroidism: no 3. Menopause before 45: no 4. Malnutrition: no 5. Chronic liver disease: no Rheumatoid Arthritis: no Current Tobacco Use: no RISK FACTORS HISTORY OF: Surgery to Spine/Hip(right/left)/Wrist (right/left): no MEDICATIONS: Thyroid Medications: none Osteoporosis Medications: none EXAM MEASUREMENTS: Bone mineral densitometry was performed using the [employer]. Bone mineral density as measured about the Lumbar spine is: ----- L1-L4(G/cm2): 1.040 T Score Values are as follows: ----- L1: -1.7 ----- L2: -1.5 ----- L3: -0.4 ----- L4: -1.3 ----- L1-L4: -1.2 Z Score Values are as follows: ----- L1: -0.5 ----- L2: -0.4 ----- L3: 0.7 ----- L4: -0.2 ----- L1-L4: -0.1 Bone mineral density has: -10.1 % since study of: 2019 Bone mineral density about the R hip (g/cm2): 0.761 Bone mineral density about the L hip (g/cm2): 0.814 T Score values are as follows: -----R Neck: -2.0 -----L Neck: -1.6 -----R Total: -1.3 -----L Total: -1.0 Z Score values are as follows: -----R Neck: -0.8 -----L Neck: -0.4 -----R Total: -0.5 -----L Total: -0.2 Bone mineral density has: -7.1 % since study of: 2020 FRAX%s: The graph provided illustrates a 16.5 % chance for a major osteoporotic fx and a 2.3 % chance for the hips probability for fx in 10 years time. IMPRESSION: Osteopenia (T Score between -2.5 and -1). There is slightly increased risk of fracture and the patient may be considered for treatment. Re-Screen 2-5 years. NOTE: T-SCORE=SD OF THE YOUNG ADULT MEAN.
== END | disposition home or self-care (01) ==
LOC: RADMAMWWP 07:14
PROVIDERS: ATTEND Internal Medicine
DX: Z12.31 Encounter for screening mammogram for malignant neoplasm of breast (principal); R92.333 Mammographic heterogeneous density, bilateral breasts; M85.50 Aneurysmal bone cyst, unspecified site; Z78.0 Asymptomatic menopausal state; Z80.3 Family history of malignant neoplasm of breast; Z92.0 Personal history of contraception
CPT/HCPCS: 77063; 77067; 77080

== ENCOUNTER → 2025-01-19 | Outpatient (CLI) | payer OTHER ==
[2025-01-19 10:26] LABS: Basophils # (A) 0.07 X 10*3/uL (0.00-0.10); Basophils % (A) 1.1 %; Eosinophils # (A) 0.15 X 10*3/uL (0.04-0.35); Eosinophils % (A) 2.4 %; HCT 41.4 % (37.2-46.3); HGB 13.1 g/dL (12.0-15.0); Immature Grans, Automated 0.20 %; Lymphocytes # (A) 2.46 X 10*3/uL (0.90-5.00); Lymphocytes % (A) 40.1 %; MCH 30.1 pg (27.0-32.0); MCHC 31.6 g/dL (32.0-37.0); MCV 95.2 FL (80.0-97.0); Monocytes # (A) 0.49 X 10*3/uL (0.20-1.00); Monocytes % (A) 8.0 %; NRBC Per 100 WBC 0 X 10*3/uL (0.00-0.01); Neutrophils # (A) 2.96 X 10*3/uL (1.80-7.70); Neutrophils % (A) 48.2 %; Platelet Count 285 X 10*3/uL (140-440); RBC 4.35 X 10*6/uL (4.10-5.20); RDW 12.1 % (11.5-14.5); WBC 6.14 X 10*3/uL (4.50-10.00)
[2025-01-19 10:55] LABS: ALT 17 U/L (8-44); AST 20 U/L (13-35); Albumin 4.6 g/dL (3.8-4.9); Albumin/Globulin Ratio 1.84 Ratio (1.60-3.17); Alkaline Phosphatase 75 U/L (41-126); Anion Gap 11.20 mmol/L (4.00-12.00); BUN/Creat Ratio 16.44 Ratio (12.00-20.00); Blood Urea Nitrogen 14.8 mg/dL (9.0-27.0); Calcium 9.5 mg/dL (8.7-10.3); Carbon Dioxide 26.8 mmol/L (21.6-31.8); Chloride 101 mmol/L (96-109); Cholesterol 195.00 mg/dL (0.00-200.00); Globulin 2.5 g/dL (1.6-3.3); Glucose 101 mg/dL (70-110); HDL Cholesterol 77.90 mg/dL (40.00-60.00); LDL Cholesterol,Calculated 75.5 mg/dL (0.0-131.0); Magnesium 1.8 mg/dL (1.5-2.4); Potassium 4.3 mmol/L (3.5-5.5); Sodium 139 mmol/L (135-145); Total Protein 7.1 g/dL (6.2-8.2); Triglycerides 208.00 mg/dL (0.00-149.00); VLDL Calculation 41.60 mg/dL (5.00-40.00)
[2025-01-19 10:56] LABS: T4, Free (Free Thyroxine) 1.04 ng/dL (0.80-1.80)
== END | disposition home or self-care (01) ==
LOC: LABWHC1 07:23
PROVIDERS: ATTEND Internal Medicine
DX: Z00.00 Encounter for general adult medical examination without abnormal findings (principal); E03.8 Other specified hypothyroidism; M85.80 Other specified disorders of bone density and structure, unspecified site; G43.909 Migraine, unspecified, not intractable, without status migrainosus
CPT/HCPCS: 36415; 80053; 80061; 80164; 82306; 83735; 84439; 84443; 85025